=== PATIENT | female | born 1995 | race Caucasian/White ===

== ENCOUNTER → 2016-09-23 | Outpatient (CLI) | payer MEDICAID ==
--- NOTE | 2016-09-23 17:22 | REP ---
Obstetric sonography: History: Supervision of , for anatomy. Findings: Scanning through the gravid uterus demonstrates a viable single intrauterine gestation in a breech lie. motion is observed and heart rate is recorded at 130 beats per minute. A posterior grade 0 placenta is seen without evidence of previa or abruption. Amniotic fluid is subjectively normal. Closed cervical length is 4.0 cm measured transabdominally. No extrauterine abnormalities observed. No anomaly is seen. Cerebellum and posterior fossa and right ventricular cardiac outflow tract views are less than optimally seen due to position. The following anatomic structures are identified and felt to be sonographically unremarkable: cranium, choroid plexus, cavum, face and profile, lungs, four-chamber heart with left ventricular outflow tract view, diaphragm, left-sided stomach, abdominal wall cord insertion, three-vessel umbilical cord, kidneys and bladder, spine, upper and lower extremities. Biometry chart: BPD 5.3 cm = 22 weeks 0 days HC 18.2 cm = 20 weeks 4 days AC 17.0 cm = 22 weeks 0 days FL 3.7 cm = 21 weeks 6 days HL 3.5 cm = 21 weeks 6 days HC/AC ratio normal 1.07. Cephalic index normal 0.85. Estimated weight 453 grams 0 pounds 15 ounces, 51st percentile for 21 week 5 days. Impression: Viable single intrauterine gestation at 21 weeks 5 days by today's composite criteria. CARLOS by today's sonography January 29, 2017. Cerebellum, posterior fossa and right ventricular cardiac outflow tract views less than optimally seen. Signed by Heri Esparza MD 09/23/2016 10:14 P
== END ==
LOC: M RAD 16:27
PROVIDERS: ATTEND Advanced Practice Midwife
DX: Z36 Encounter for antenatal screening of mother (principal)

== ENCOUNTER → 2016-10-17 | Outpatient (CLI) | payer MEDICAID ==
--- NOTE | 2016-10-17 16:04 | REP ---
Clinical: Anatomical evaluation. Comparison: 09/23/2016 . Findings: Examination demonstrates a single live intrauterine in breech presentation. motion is identified by technologist. Placenta is noted posteriorly and grade the zero without evidence for placenta previa or abruption. Amniotic fluid volume is normal. Cervix measures 3.9 cm in length and appears closed. No evidence for nuchal cord. Gestational age by LMP 23 weeks 6 days with CARLOS 02/07/2017 . Gestational age by current measurements 24 weeks 5 days with CARLOS 02/01/2017 . FHR equals 144 beats per minute. BPD 6.2 cm 25 weeks 1 day HC 22.1 cm 24 weeks 1 day AC 20.3 cm 24 weeks 6 days FL 4.8 cm 25 weeks 6 days HL 4.4 cm 26 weeks 3 days HC/AC ratio 1.09 Estimated weight 782 grams ( 47th percentile). Anatomical assessment demonstrates normal structures including cranium, choroid plexus, cavum, cerebellum/posterior fossa, facial features, lungs, four-chamber heart/ventricular outflow tracts, diaphragm, stomach, cord insertion/three-vessel cord, kidneys/bladder, spine, and extremities. Impression: Single live intrauterine in breech presentation demonstrating appropriate interval growth. Anatomical assessment is complete and normal. Signed by Antoine Henley MD 10/17/2016 03:56 P
== END ==
LOC: M SMT 14:56
PROVIDERS: ATTEND Advanced Practice Midwife
DX: Z34.82 Encounter for supervision of other normal pregnancy, second trimester (principal)

== ENCOUNTER → 2016-11-02 | Outpatient (CLI) | payer MEDICAID ==
[2016-11-02 14:21] LABS: MEAN CORPUSCULAR HEMOGLOBIN 30.1 pg (27.0-33.0); MEAN CORPUSCULAR HGB CONC 33.5 g/dl (32.0-36.5); MEAN CORPUSCULAR VOLUME 89.7 fl (80.0-96.0); RED CELL DISTRIBUTION WIDTH 12.6 % (11.5-14.5); WHITE BLOOD COUNT 8.9 K/mm3 (4.0-10.0)
== END ==
LOC: M SMT 09:07
PROVIDERS: ATTEND Advanced Practice Midwife
DX: Z34.82 Encounter for supervision of other normal pregnancy, second trimester (principal)

== ENCOUNTER → 2016-11-22 | Outpatient (CLI) | payer MEDICAID | LOC: M SMT 11:30 | PROVIDERS: ATTEND Advanced Practice Midwife | DX: Z34.82 Encounter for supervision of other normal pregnancy, second trimester (principal) ==

== ENCOUNTER → 2017-01-10 | Outpatient (REF) | payer MEDICAID | LOC: M LAB REF 12:52 | PROVIDERS: ATTEND Advanced Practice Midwife | DX: Z34.83 Encounter for supervision of other normal pregnancy, third trimester (principal) ==

== ENCOUNTER 2017-01-27 05:29 | Inpatient (IN) | payer MEDICAID ==
[~2017-01-27] VITALS: Ht 152.4 cm; Wt 77.0 kg
[2017-01-27] MEDS ORDERED: LR 1,000 ML IV SCH (05:59)
[2017-01-27] MEDS ORDERED: PRIL20CA9 PO (06:03)
[2017-01-27] MEDS ORDERED: PRENTAB7 PO (06:03)
[2017-01-27 06:20] LABS: MEAN CORPUSCULAR HEMOGLOBIN 28.1 pg (27.0-33.0); MEAN CORPUSCULAR HGB CONC 33.7 g/dl (32.0-36.5); MEAN CORPUSCULAR VOLUME 83.4 fl (80.0-96.0); RED CELL DISTRIBUTION WIDTH 14.3 % (11.5-14.5); WHITE BLOOD COUNT 10.2 K/mm3 (4.0-10.0)
[2017-01-27] MEDS ORDERED: ONDANSETRON 4MG/2ML VIAL (J2405) As Ordered ONE (06:37)
[2017-01-27] MEDS ORDERED: ONDANSETRON 4MG/2ML VIAL (J2405) IV ONE (06:45)
--- NOTE | 2017-01-27 07:12 | HPE ---
DATE OF ADMISSION: 01/27/2017 This is a 21-year-old, (G) 3, para (P) 1 female at 38 and 5/7 weeks gestation by 8 week ultrasound with expected date of confinement (EDC) of 02/07/2017 who presents with regular contractions every 3-4 minutes for the last several hours. She denies vaginal bleeding. There is good movement. COURSE: The patient initiated care at 9 weeks gestation on 06/28/2016. Her first trimester blood pressure was 102/60, weight 142 pounds. She had no complications. HISTORY: February 2011 - 39 week vaginal delivery, 8 pound 6 ounce male . May 2013 - spontaneous miscarriage. MEDICAL HISTORY: None. SURGERIES: Knee surgery. ALLERGIES: - CECLOR (hives) - AMOXICILLIN (hives) SOCIAL HISTORY: Father of the baby is involved. The patient denies cigarettes, alcohol or drug use during . FAMILY HISTORY: Noncontributory. PHYSICAL EXAMINATION: Blood pressure 116/74. Pulse 84. She appears uncomfortable. HEAD AND NECK EXAM: Normal. LUNGS: Clear. HEART: Regular rate and rhythm. ABDOMEN: Nontender. Gravid. heart tones Category 1. STERILE VAGINAL EXAM: 4-5 cm, 90% effaced, -2 station, posterior vertex. Contractions every 2-3 minutes. EXTREMITIES: Nontender. LABS: Blood type O negative. Rubella immune. RPR nonreactive. Hepatitis B and C negative. Diabetes screen 73. GBS negative on 01/10/2017. ASSESSMENT: 21-year-old, G3, P1 female at 38 and 5/7 weeks gestation who presents in active labor. The patient is admitted on 01/27/2017. Anticipate vaginal delivery.
[2017-01-27] MEDS ORDERED: OXYTOCIN 30 UNITS IN 0.9% NaCl 500ML IV BAG (J2590) As Ordered ONE (07:51)
[2017-01-27] MEDS ORDERED: OXYTOCIN DRIP 30 UNITS in APPROPRIATE DILUENT 1 EA IV SCH (07:57)
[2017-01-27] MEDS ORDERED: MEASLES,MUMPS,RUBELLA VACCINE INJ (MMR-II) (90707) SC SCH (08:00)
[2017-01-27] MEDS ORDERED: DIBUCAINE 1% OINTMENT 30GM TOP PRN (08:00)
[2017-01-27] MEDS ORDERED: ACETAMINOPHEN 500 MG TAB PO PRN (08:00)
[2017-01-27] MEDS ORDERED: PROMETHAZINE 25 MG TAB PO PRN (08:00)
[2017-01-27] MEDS ORDERED: ONDANSETRON 4MG/2ML VIAL (J2405) IV PRN (08:00)
[2017-01-27] MEDS ORDERED: RHOGAM 300 MCG (1500 IU) INJ (J2790) IM SCH (08:00)
[2017-01-27] MEDS ORDERED: DOCUSATE SODIUM 100 MG CAP PO PRN (08:00)
[2017-01-27 10:15] VITALS: BP 121/56
[2017-01-27] MEDS: LR 1,000 ML IV SCH ×2 (10:15→15:57)
[2017-01-27] MEDS: PRENATAL VITAMIN TAB PO SCH (11:29)
[2017-01-27] MEDS: IBUPROFEN 800 MG TAB PO PRN ×2 (11:30→21:21)
[2017-01-27 18:00] VITALS: BP 110/58
[2017-01-28 05:34] VITALS: BP 119/60
[2017-01-28 06:22] LABS: MEAN CORPUSCULAR HEMOGLOBIN 28.4 pg (27.0-33.0); MEAN CORPUSCULAR HGB CONC 33.6 g/dl (32.0-36.5); MEAN CORPUSCULAR VOLUME 84.5 fl (80.0-96.0); RED CELL DISTRIBUTION WIDTH 14.6 % (11.5-14.5); WHITE BLOOD COUNT 10.6 K/mm3 (4.0-10.0)
[2017-01-28] MEDS: PRENATAL VITAMIN TAB PO SCH (13:00)
[2017-01-28 18:12] VITALS: BP 121/56
[2017-01-28] MEDS: IBUPROFEN 800 MG TAB PO PRN (20:14)
[2017-01-29 05:41] VITALS: BP 110/56
[2017-01-29] MEDS ORDERED: ACET50TA PO (08:41)
[2017-01-29] MEDS ORDERED: IBUP-1114 PO (08:44)
[2017-01-29] MEDS ORDERED: COLA100C3 PO (08:45)
[2017-01-29] MEDS: PRENATAL VITAMIN TAB PO SCH (09:00)
== END 2017-01-29 10:50 | disposition home or self-care (01) | DRG 560 ==
LOC: M LDO 05:29 → M LDI 05:45 → M OBS 10:00
PROVIDERS: ADMIT Specialist; ATTEND Specialist
PROC: 10E0XZZ Delivery of Products of Conception, External Approach (ICD-10-PCS; principal; 2017-01-27)
DX: O80 Encounter for full-term uncomplicated delivery (principal); Z37.0 Single live birth; Z3A.38 38 weeks gestation of pregnancy

== ENCOUNTER → 2018-07-26 | Outpatient (REF) | payer MEDICAID, OTHER ==
[2018-07-26 13:33] LABS: BASO # 0.1 10^3/uL (0.0-0.2); BASO % 0.8 % (0.0-1.0); EOS # 0.1 10^3/uL (0.0-0.50); EOS % 1.1 % (0.0-3.0); HEMATOCRIT 39.6 % (36.0-47.0); HEMOGLOBIN 13.1 g/dl (12.0-15.5); IMMATURE GRANULOCYTE % 0.3 % (0-3.0); LYMPH # 2.1 10^3/uL (1.5-6.5); LYMPH % 32.5 % (24.0-44.0); MEAN CORPUSCULAR HGB CONC 33.1 g/dl (32.0-36.5); MEAN CORPUSCULAR VOLUME 87.6 fl (80.0-96.0); MONO # 0.3 10^3/uL (0.0-0.8); MONO % 4.5 % (0.0-5.0); NEUTROPHILS % 60.8 % (36.0-66.0); PLATELET COUNT, AUTOMATED 289 10^3/uL (150-450); RED BLOOD COUNT 4.52 10^6/uL (4.00-5.40); RED CELL DISTRIBUTION WIDTH 11.9 % (11.5-14.5); WHITE BLOOD COUNT 6.5 10^3/uL (4.0-10.0)
[2018-07-26 13:44] LABS: ALBUMIN 3.4 GM/DL (3.2-5.2); ALBUMIN/GLOBULIN RATIO 0.89 (1.00-1.93); ALKALINE PHOSPHATASE 70 U/L (45-117); ALT/SGPT 16 U/L (12-78); ANION GAP 7 MEQ/L (8-16); AST/SGOT 13 U/L (7-37); BILIRUBIN,TOTAL 0.3 MG/DL (0.2-1.0); BLOOD UREA NITROGEN 8 MG/DL (7-18); CALCIUM LEVEL 8.8 MG/DL (8.5-10.1); CARBON DIOXIDE LEVEL 26 MEQ/L (21-32); CHLORIDE LEVEL 108 MEQ/L (98-107); CREATININE FOR GFR 0.64 MG/DL (0.55-1.30); GLOMERULAR FILTRATION RATE > 60.0 (>60); GLUCOSE, FASTING 78 MG/DL (70-100); POTASSIUM SERUM 4.4 MEQ/L (3.5-5.1); RHEUMATOID FACTOR QUANT < 10.0 IU/ML (<15.0); SODIUM LEVEL 141 MEQ/L (136-145); TOTAL PROTEIN 7.2 GM/DL (6.4-8.2)
[2018-07-26 13:46] LABS: FOLATE > 24.0 NG/ML; TOTAL 25(OH) VITAMIN D 47.3 NG/ML (30.0-100.0); VITAMIN B12 LEVEL 745 PG/ML
[2018-07-26 14:17] LABS: ERYTHROCYTE SEDIMENTATION RATE 14 mm/hr (0-20)
[2018-07-31 14:13] LABS: ANTINUCLEAR ANTIBODIES DIRECT Negative (Negative); VITAMIN B1 LEVEL WHOLE BLOOD 116.3 nmol/L (66.5-200.0); VITAMIN B6,PYRIDOXAL PHOSPHATE 16.3 ug/L (2.0-32.8); VITAMIN E(ALPHA TOCOPHEROL) 10.3 mg/L (5.9-19.4); VITAMIN E(GAMMA TOCOPHEROL) 0.9 mg/L (0.7-4.9)
== END ==
LOC: M LABNEURO 10:35
DX: R51 Headache (principal)

== ENCOUNTER → 2019-02-18 | Outpatient (REF) | payer OTHER, MEDICAID ==
[~2019-02-18] MED LIST: COLA100C5 PO; IBUP-1114 PO; MAPA500T2 PO; PRENTAB7 PO; PRIL20CA9 PO
== END ==
LOC: M LAB REF 17:22
PROVIDERS: ATTEND Advanced Practice Midwife
DX: Z12.4 Encounter for screening for malignant neoplasm of cervix (principal)

== ENCOUNTER → 2019-02-18 | Outpatient (CLI) | payer OTHER | LOC: M SMT 09:56 | PROVIDERS: ATTEND Advanced Practice Midwife | DX: Z13.79 Encounter for other screening for genetic and chromosomal anomalies (principal) ==

== ENCOUNTER 2019-03-14 18:32 | Emergency (ER) | payer MEDICAID, OTHER ==
[~2019-03-14] VITALS: Ht 165.1 cm; Wt 59.1 kg
[2019-03-14 19:32] LABS: BASO # 0.1 10^3/uL (0.0-0.2); BASO % 0.7 % (0.0-1.0); EOS # 0.1 10^3/uL (0.0-0.50); EOS % 1.8 % (0.0-3.0); HEMATOCRIT 39.9 % (36.0-47.0); HEMOGLOBIN 13.1 g/dl (12.0-15.5); LYMPH % 41.2 % (24.0-44.0); MEAN CORPUSCULAR HEMOGLOBIN 29.6 pg (27.0-33.0); MEAN CORPUSCULAR HGB CONC 32.8 g/dl (32.0-36.5); MEAN CORPUSCULAR VOLUME 90.3 fl (80.0-96.0); MONO # 0.5 10^3/uL (0.0-0.8); MONO % 6.3 % (0.0-5.0); NEUTROPHILS # 3.6 10^3/uL (1.8-7.7); NEUTROPHILS % 49.9 % (36.0-66.0); PLATELET COUNT, AUTOMATED 229 10^3/uL (150-450); RED BLOOD COUNT 4.42 10^6/uL (4.00-5.40); WHITE BLOOD COUNT 7.3 10^3/uL (4.0-10.0)
[2019-03-14 19:49] LABS: ALBUMIN 3.7 GM/DL (3.2-5.2); ALT/SGPT 26 U/L (12-78); BILIRUBIN,DIRECT < 0.1 MG/DL (0.0-0.2); BILIRUBIN,TOTAL 0.3 MG/DL (0.2-1.0); BLOOD UREA NITROGEN 10 MG/DL (7-18); CALCIUM LEVEL 9.1 MG/DL (8.5-10.1); CARBON DIOXIDE LEVEL 30 MEQ/L (21-32); CHLORIDE LEVEL 106 MEQ/L (98-107); CREATININE FOR GFR 0.69 MG/DL (0.55-1.30); GLOMERULAR FILTRATION RATE > 60.0 (>60); GLUCOSE, FASTING 87 MG/DL (70-100); LIPASE 121 U/L (73-393); POTASSIUM SERUM 3.8 MEQ/L (3.5-5.1); SODIUM LEVEL 140 MEQ/L (136-145); TOTAL PROTEIN 7.5 GM/DL (6.4-8.2)
[2019-03-14 20:14] LABS: HCG, SERUM QUALITATIVE NEGATIVE (NEGATIVE)
[2019-03-14] MEDS ORDERED: NS 1,000 ML IV ONE (20:30)
[2019-03-14] MEDS ORDERED: METOCLOPRAMIDE INJ 10MG/2ML VIAL (J2765) IV ONE (20:30)
--- NOTE | 2019-03-14 22:43 | REPVR ---
EXAM: US Pelvis Complete, Transabdominal and US Pelvis, Transvaginal EXAM DATE/TIME: 03/14/2019 9:29 PM CLINICAL HISTORY: 23 years old, female; Pelvic pain; Additional info: Abnl vag bleeding, suprapubic pain TECHNIQUE: Imaging protocol: Real-time transabdominal and transvaginal pelvic ultrasound (complete) with image documentation. Transvaginal imaging was used for better evaluation of the endometrium and adnexa. COMPARISON: No relevant prior studies available. FINDINGS: Uterus/cervix: 8 x 4.1 x 4.8 cm. Normal endometrial thickness, measuring approximately 5 mm. Right ovary: 2.8 x 2.5 x 2.7 cm. 2.2 x 2 x 1.9 cm dominant follicle. No solid mass. Normal ovarian blood flow. Left ovary: 2.4 x 1.1 x 2.1 cm. No mass. Normal ovarian blood flow. Free fluid: None. Bladder: Normal. IMPRESSION: No acute sonographic findings. Electronically signed by: Volodymyr Jean-Baptiste On 03/14/2019 22:43:00 PM
[2019-03-14 23:10] VITALS: BP 101/61
== END 2019-03-14 23:35 | disposition home or self-care (01) ==
LOC: M ED 18:32
DX: R10.2 Pelvic and perineal pain (principal); M54.5 Low back pain; Z79.899 Other long term (current) drug therapy; Z88.0 Allergy status to penicillin; Z88.1 Allergy status to other antibiotic agents

== ENCOUNTER → 2019-03-18 | Outpatient (REF) | payer OTHER ==
[2019-03-18 19:40] LABS: CHLAMYDIA DNA AMPLIFICATION NEGATIVE (NEGATIVE); GC DNA AMPLIFICATION NEGATIVE (NEGATIVE)
== END ==
LOC: M LAB REF 17:19
PROVIDERS: ATTEND Advanced Practice Midwife
DX: Z11.3 Encounter for screening for infections with a predominantly sexual mode of transmission (principal)

== ENCOUNTER → 2019-09-02 | Outpatient (CLI) | payer OTHER ==
[2019-09-02 13:41] LABS: BASO % 0.4 % (0.0-1.0); EOS # 0.1 10^3/uL (0.0-0.5); EOS % 0.7 % (0.0-3.0); HEMOGLOBIN 12.1 g/dl (12.0-15.5); LYMPH # 2.1 10^3/uL (1.5-5.0); LYMPH % 27.2 % (24.0-44.0); MEAN CORPUSCULAR HEMOGLOBIN 29.8 pg (27.0-33.0); MEAN CORPUSCULAR HGB CONC 33.6 g/dl (32.0-36.5); MEAN CORPUSCULAR VOLUME 88.7 fl (80.0-96.0); MONO # 0.5 10^3/uL (0.0-0.8); MONO % 6.4 % (0.0-5.0); PLATELET COUNT, AUTOMATED 229 10^3/uL (150-450); RED BLOOD COUNT 4.06 10^6/uL (4.00-5.40); WHITE BLOOD COUNT 7.7 10^3/uL (4.0-10.0)
[2019-09-02 15:12] LABS: CHLAMYDIA DNA AMPLIFICATION NEGATIVE (NEGATIVE); GC DNA AMPLIFICATION NEGATIVE (NEGATIVE)
[2019-09-03 08:13] LABS: HEPATITIS C VIRUS ABY INDEX 0.2 INDEX (<0.8); RUBELLA IgG QUALITATIVE IMMUNE (IMMUNE)
[2019-09-04 09:36] LABS: HIV 1&2 SCREEN CENTAUR NEGATIVE (NEGATIVE)
== END ==
LOC: M PLALAB 11:55
PROVIDERS: ATTEND Advanced Practice Midwife
DX: Z34.81 Encounter for supervision of other normal pregnancy, first trimester (principal); Z3A.09 9 weeks gestation of pregnancy

== ENCOUNTER → 2019-11-05 | Outpatient (REF) | payer OTHER | LOC: M SFHCWAGY 12:51 | PROVIDERS: ATTEND Advanced Practice Midwife | DX: Z34.92 Encounter for supervision of normal pregnancy, unspecified, second trimester (principal) ==

== ENCOUNTER → 2019-11-05 | Outpatient (CLI) | payer OTHER ==
--- NOTE | 2019-11-06 06:51 | REP ---
Clinical: Anatomical evaluation. Comparison: None . Findings: Examination demonstrates a single live intrauterine in variable presentation. motion is identified by technologist. Placenta is noted posterior and grade I I without evidence for placenta previa or abruption. Amniotic fluid volume is normal. Cervix measures 3.5 cm in length and appears closed. No evidence for nuchal cord. Gestational age by current measurements 18 weeks 1 day with CARLOS 04/06/2020 . FHR equals 132 beats per minute. BPD 3.8 cm 17 weeks 5 days HC 14.6 cm 17 weeks 5 days AC 12.7 cm 18 weeks 2 days FL 2.9 cm 19 weeks 0 days HL 2.8 cm 19 weeks 1 day HC/AC ratio 1.15 Estimated weight 242 grams ( 62 percentile). Anatomical assessment demonstrates normal structures including cranium, choroid plexus, cavum, cerebellum/posterior fossa, facial features, lungs, four-chamber heart/ventricular outflow tracts, diaphragm, stomach, cord insertion/three-vessel cord, kidneys/bladder, spine, and extremities. Impression: Single live intrauterine in variable presentation demonstrating appropriate interval growth. Anatomical assessment is complete and normal.
== END ==
LOC: M WHC 09:25
PROVIDERS: ATTEND Advanced Practice Midwife
DX: Z34.82 Encounter for supervision of other normal pregnancy, second trimester (principal); Z3A.18 18 weeks gestation of pregnancy

== ENCOUNTER → 2019-12-30 | Outpatient (REF) | payer OTHER ==
[2019-12-30 15:34] LABS: HEMATOCRIT 34.1 % (36.0-47.0); HEMOGLOBIN 11.5 g/dl (12.0-15.5); MEAN CORPUSCULAR HEMOGLOBIN 30.4 pg (27.0-33.0); MEAN CORPUSCULAR HGB CONC 33.7 g/dl (32.0-36.5); MEAN CORPUSCULAR VOLUME 90.2 fl (80.0-96.0); PLATELET COUNT, AUTOMATED 229 10^3/uL (150-450); RED BLOOD COUNT 3.78 10^6/uL (4.00-5.40); WHITE BLOOD COUNT 10.5 10^3/uL (4.0-10.0)
== END ==
LOC: M PLALAB 13:14
PROVIDERS: ATTEND Advanced Practice Midwife
DX: Z01.89 Encounter for other specified special examinations (principal)

== ENCOUNTER → 2020-02-26 | Outpatient (REF) | payer OTHER ==
[2020-02-26 17:26] LABS: HEMATOCRIT 34.4 % (36.0-47.0); MEAN CORPUSCULAR HEMOGLOBIN 28.6 pg (27.0-33.0); MEAN CORPUSCULAR VOLUME 89.4 fl (80.0-96.0); PLATELET COUNT, AUTOMATED 245 10^3/uL (150-450); RED BLOOD COUNT 3.85 10^6/uL (4.00-5.40); WHITE BLOOD COUNT 11.3 10^3/uL (4.0-10.0)
== END ==
LOC: M PLALAB 15:02
PROVIDERS: ATTEND Advanced Practice Midwife
DX: R42 Dizziness and giddiness (principal)

== ENCOUNTER → 2020-03-03 | Outpatient (REF) | payer OTHER | LOC: M SFHCWAGY 10:23 | PROVIDERS: ATTEND Advanced Practice Midwife | DX: Z34.93 Encounter for supervision of normal pregnancy, unspecified, third trimester (principal) ==

== ENCOUNTER 2020-04-05 06:20 | Inpatient (IN) | payer OTHER, MEDICAID ==
[2020-04-05] MEDS ORDERED: OXYTOCIN 30 UNITS IN 0.9% NaCl 500ML IV BAG (J2590) ONE (09:00)
[2020-04-05] MEDS ORDERED: OXYTOCIN 30 UNITS IN 0.9% NaCl 500ML IV BAG (J2590) As Ordered ONE (09:08)
[2020-04-05] MEDS ORDERED: IBUPROFEN 800 MG TAB ONE (15:00)
[2020-04-05] MEDS ORDERED: IBUPROFEN 800 MG TAB As Ordered ONE (15:19)
[2020-05-22 18:42] LABS: HEMATOCRIT 35.3 % (36.0-47.0); HEMOGLOBIN 11.7 g/dl (12.0-15.5); MEAN CORPUSCULAR HGB CONC 33.1 g/dl (32.0-36.5); MEAN CORPUSCULAR VOLUME 87.4 fl (80.0-96.0); PLATELET COUNT, AUTOMATED 242 10^3/uL (150-450); RED BLOOD COUNT 4.04 10^6/uL (4.00-5.40); WHITE BLOOD COUNT 12.6 10^3/uL (4.0-10.0)
--- NOTE | 2020-06-04 17:33 | DN ---
DATE OF DELIVERY: 04/05/2020 GENDER: Female APGARS: 9 and 9 PREDELIVERY DIAGNOSIS: 40 weeks gestation labor. POSTDELIVERY DIAGNOSIS: Delivered. PROCEDURE: Spontaneous vaginal delivery. CHILDREN'S MINISTRY DIRECTOR: Alejandro Snyder MD ANESTHESIA: None. ESTIMATED BLOOD LOSS: 100 mL. FINDINGS: 7 pound 3 ounce (3270 gram) female with Apgars 9 and 9. DESCRIPTION OF DELIVERY: After a short second stage of approximately five minutes, the patient had spontaneous delivery of a 7 pound 3 ounce female with Apgars 9 and 9 and with no delivery of anesthesia. There was no nuchal cord. The shoulders delivered with ease. The infant was handed to the mother. The cord was doubly clamped and cut. The placenta delivered spontaneously and appeared to be intact. The patient received IV Pitocin and immediately delivered the placenta. There were no vaginal lacerations present. Sponge counts were correct. MTDD
== END 2020-04-06 11:45 | disposition home or self-care (01) | DRG 560 ==
LOC: M LDI 06:20
PROVIDERS: ADMIT Specialist; ATTEND Specialist
PROC: 10E0XZZ Delivery of Products of Conception, External Approach (ICD-10-PCS; principal; 2020-04-05)
DX: O48.0 Post-term pregnancy (principal); Z88.1 Allergy status to other antibiotic agents; Z37.0 Single live birth; Z3A.40 40 weeks gestation of pregnancy; Z88.8 Allergy status to other drugs, medicaments and biological substances

== ENCOUNTER → 2021-01-28 | Outpatient (REF) | payer OTHER, MEDICAID | LOC: M SFHCWAGY 12:54 | PROVIDERS: ATTEND Advanced Practice Midwife | DX: R30.0 Dysuria (principal) ==

== ENCOUNTER → 2021-07-20 | Outpatient (CLI) | payer OTHER, MEDICAID ==
--- NOTE | 2021-07-20 08:51 | REP ---
INDICATION: ANATOMY COMPARISON: None. TECHNIQUE: Transabdominal obstetrical ultrasound with color Doppler evaluation. FINDINGS: Examination demonstrates a single live intrauterine in variable presentation. motion is identified by technologist. Placenta is noted posterior and grade 0 without evidence for placenta previa or abruption. Amniotic fluid volume is normal. Cervix measures 4.4 cm in length and appears closed.. Gestational age by current measurements 19 weeks 0 days with CARLOS 12/14/2021. FHR equals 150 beats per minute. Estimated weight 267 grams (48thpercentile). Anatomical assessment demonstrates normal structures including cranium, choroid plexus, cavum, cerebellum/posterior fossa, facial features, lungs, four-chamber heart/ventricular outflow tracts, diaphragm, stomach, cord insertion, kidneys/bladder, spine, and extremities. Two vessel cord noted. IMPRESSION: Single live intrauterine in variable presentation demonstrating appropriate estimated weight. Two vessel cord. Anatomical assessment is otherwise complete and normal. <Electronically signed by Antoine Henley > 07/20/21 [id number]
== END ==
LOC: M WHC 07:04
PROVIDERS: ATTEND Midwife
DX: Z36.89 Encounter for other specified antenatal screening (principal); Z3A.19 19 weeks gestation of pregnancy

== ENCOUNTER → 2022-07-08 | Outpatient (CLI) | payer OTHER ==
[2022-07-08 18:49] LABS: HEMATOCRIT 38.1 % (36.0-47.0); HEMOGLOBIN 12.5 g/dl (12.0-15.5); MEAN CORPUSCULAR HEMOGLOBIN 29.3 pg (27.0-33.0); MEAN CORPUSCULAR HGB CONC 32.8 g/dl (32.0-36.5); MEAN CORPUSCULAR VOLUME 89.4 fl (80.0-96.0); PLATELET COUNT, AUTOMATED 217 10^3/uL (150-450); RED BLOOD COUNT 4.26 10^6/uL (4.00-5.40); WHITE BLOOD COUNT 6.6 10^3/uL (4.0-10.0)
[2022-07-08 19:35] LABS: ALBUMIN 3.9 GM/DL (3.2-5.2); ALT/SGPT 17 U/L (12-78); BILIRUBIN,TOTAL 0.4 MG/DL (0.2-1.0); BLOOD UREA NITROGEN 13 MG/DL (7-18); CALCIUM LEVEL 9.2 MG/DL (8.5-10.1); CARBON DIOXIDE LEVEL 30 MEQ/L (21-32); CHLORIDE LEVEL 106 MEQ/L (98-107); CREATININE FOR GFR 0.84 MG/DL (0.55-1.30); GLOMERULAR FILTRATION RATE > 60.0 (>60); GLUCOSE, FASTING 97 MG/DL (70-100); IRON (FE) 61 UG/DL (50-170); POTASSIUM SERUM 3.9 MEQ/L (3.5-5.1); SODIUM LEVEL 140 MEQ/L (136-145); TOTAL PROTEIN 7.5 GM/DL (6.4-8.2)
== END ==
LOC: M LAB 17:43
DX: R53.83 Other fatigue (principal); D64.9 Anemia, unspecified

== ENCOUNTER → 2023-05-12 | Outpatient (REF) | payer OTHER, MEDICAID | LOC: M PLALAB 09:07 | PROVIDERS: ATTEND Advanced Practice Midwife | DX: Z12.4 Encounter for screening for malignant neoplasm of cervix (principal) ==

== ENCOUNTER → 2023-05-12 | Outpatient (CLI) | payer OTHER | LOC: M PLALAB 09:27 | PROVIDERS: ATTEND Advanced Practice Midwife | DX: Z15.01 Genetic susceptibility to malignant neoplasm of breast (principal) ==

== ENCOUNTER → 2023-08-14 | Outpatient (CLI) | payer OTHER ==
[~2023-08-14] MED LIST changes: +PROHANCE 279.3MG/ML 15ML VIAL As Ordered ONE
== END ==
LOC: M RAD 12:25
PROVIDERS: ATTEND Surgery
DX: Z15.01 Genetic susceptibility to malignant neoplasm of breast (principal); Z15.89 Genetic susceptibility to other disease; Z15.09 Genetic susceptibility to other malignant neoplasm
CPT/HCPCS: 77049; A9576

== ENCOUNTER → 2024-10-15 | Outpatient (CLI) | payer MEDICAID, OTHER ==
[~2024-10-15] MED LIST changes: -PROHANCE 279.3MG/ML 15ML VIAL As Ordered ONE
== END ==
LOC: M RAD 10:12
PROVIDERS: ATTEND Registered Nurse
DX: R07.9 Chest pain, unspecified (principal)